=== PATIENT | male | born 1960 | race African-American/Black ===

== ENCOUNTER 2023-07-04 20:48 | Emergency (ER) | payer BC, OTHER ==
[~2023-07-04] VITALS: Ht 185.4 cm; Wt 82.0 kg
[2023-07-04 21:37] VITALS: O2SAT 98
[2023-07-04] MEDS ORDERED: LIDOCAINE HCL/PF 1% 10 MG/ML 5ML VIAL INFIL ONE (22:15)
[2023-07-04] MEDS ORDERED: BACITRACIN ZINC OINT UDPKT TOP ONE (22:15)
[2023-07-04] MEDS ORDERED: TETANUS, DIPHTHERIA, PERTUSSIS VAC/PF 0.5ML (>10YR OLD) IM ONE (22:15)
[2023-07-05] MEDS ORDERED: LIDOCAINE HCL/PF 1% 10 MG/ML 5ML VIAL INFIL NR (00:15)
[2023-07-05] MEDS ORDERED: BACITRACIN ZINC OINT UDPKT TOP NR (00:15)
[2023-07-05] MEDS ORDERED: TETANUS, DIPHTHERIA, PERTUSSIS VAC/PF 0.5ML (>10YR OLD) IM ONE (00:30)
[2023-07-05] MEDS ORDERED: BO1 TP (00:36)
[2023-07-05] MEDS ORDERED: TOPUD MT (00:36)
[2023-07-05 01:38] VITALS: BP 140/81; PULSE 66; RESP 18; TEMP 98.3
== END 2023-07-05 01:53 | disposition home or self-care (01) ==
LOC: ER 20:48
DX: S01.81XA Laceration without foreign body of other part of head, initial encounter (principal); Z98.890 Other specified postprocedural states; V19.9XXA Pedal cyclist (driver) (passenger) injured in unspecified traffic accident, initial encounter; Y93.89 Activity, other specified; Y92.89 Other specified places as the place of occurrence of the external cause; Y99.8 Other external cause status
CPT/HCPCS: 70450; 70486; 12014; 99285; 90715; 90471; J3490; Z7610 ×2

== ENCOUNTER 2023-07-11 11:55 | Emergency (ER) | payer BC, OTHER ==
[~2023-07-11] VITALS: Ht 185.4 cm; Wt 82.0 kg
[~2023-07-11 11:55] MED LIST: BO1 TP; TOPUD MT
[2023-07-11 12:01] VITALS: BP 137/82; PULSE 68; TEMP 98.6; O2SAT 99
== END 2023-07-11 14:36 | disposition home or self-care (01) ==
LOC: ER 11:55
DX: S01.111D Laceration without foreign body of right eyelid and periocular area, subsequent encounter (principal); Z48.02 Encounter for removal of sutures; X58.XXXD Exposure to other specified factors, subsequent encounter
CPT/HCPCS: 99281